=== PATIENT | female | born 1980 | race Hispanic/Latino ===

== ENCOUNTER 2018-12-28 22:09 | Emergency (ER) | payer OTHER, SELFPAY ==
--- NOTE | 2018-12-28 22:38 | RAD ---
Exam: Chest one view HISTORY:Pain Comparison: None FINDINGS: Lungs: No consolidation Cardiac silhouette:Accentuated by portable technique. Pulmonary vessels: Normal Pleural Spaces: Clear Pneumothorax: None Osseous abnormalities: None of acuity. IMPRESSION: No focal consolidation.
[2018-12-28 22:39] LABS: #Basophils 0.1 thou/uL (0.0-0.2); #Eosinphils 0.2 thou/uL (0.0-0.7); #Lymphocytes 4.1 thou/uL (1.20-3.40); #Monocytes 0.7 thou/uL (0.11-0.59); %Basophils 0.9 % (0.0-1.0); %Eosinophils 2.1 % (0.0-10.0); %Lymphocytes 40.6 % (21.0-51.0); %Monocytes 7.1 % (0.0-10.0); %Neutrophils 49.3 % (42.0-75.0); Hemoglobin 12.9 g/dL (12.0-16.0); Mean Corpuscular HGB CONC 34.4 g/dL (32.0-36.0); Mean Corpuscular Hemoglobin 32.5 pg (27.0-31.0); Mean Corpuscular Volume 94.5 fL (78.0-98.0); Mean Platelet Volume 8.2 fL (7.4-10.4); Platelet Count 257 thou/uL (130-400); RBC Distribution Width 12.2 % (11.5-14.5); Red Blood Cell (RBC) Count 3.96 mill/uL (4.20-5.40); White Blood Cell (WBC) Count 10.1 thou/uL (4.8-10.8)
[2018-12-28 22:45] LABS: BHCG - Serum Negative (NEGATIVE); Pregs Control Background? CLEAR/WHITE (CLR/WHITE); Pregs Control Bar Appear? YES (CONTROL BAR)
[2018-12-28 23:01] LABS: ALT (SGPT) 76 U/L (8-55); AST (SGOT) 126 U/L (5-34); Albumin 4.1 g/dL (3.5-5.0); Alkaline Phosphatase 136 U/L (40-110); Anion Gap 12 mmol/L (10-20); BUN (Urea Nitrogen) 9 mg/dL (7.0-18.7); Bilirubin, Total 0.3 mg/dL (0.2-1.2); CK (CPK) 78 U/L (29-168); Calc. Creatinine Clearance 0 mL/min (70-130); Calcium 9.1 mg/dL (7.8-10.44); Carbon Dioxide 23 mmol/L (22-29); Chloride 106 mmol/L (98-107); Estimated GFR-MDRD Greater than 90; Globulin 3.3 g/dL (2.4-3.5); Glucose 100 mg/dL (70-105); Lipase 40 U/L (8-78); Potassium 3.7 mmol/L (3.5-5.1); Protein, Total 7.4 g/dL (6.0-8.3); Sodium 137 mmol/L (136-145)
[2018-12-28] MEDS ORDERED: Morphine 4 MG/ML VIAL ONE (23:45)
[2018-12-28] MEDS ORDERED: Ondansetron PF 4 MG/2 ML Vial ONE (23:45)
[2018-12-29 00:38] LABS: Bacteria/HPF None Seen HPF (None Seen); Bilirubin Negative (Negative); Blood, Urine Negative (Negative); Clarity Clear (Clear); Glucose, Urine (Dipstick) Normal (Negative); Leukocyte 25 Leu/uL (Negative); Nitrite Negative (Negative); Protein, Urine (Dipstick) Negative (Neg-Trace); RBC/HPF 0-3 HPF (0-3); Urobilinogen Normal mg/dL (Less than 2); WBC/HPF 0-3 HPF (0-3)
--- NOTE | 2018-12-29 08:18 | ULT ---
PRELIMINARY REPORT/[facility]/EMERGENCY AFTER HOURS PROCEDURE: PROCEDURE INFORMATION: Exam: US Abdomen Limited, Right Upper Quadrant Exam date and time: 12/29/2018 1:46 AM Clinical history: 38 years old, female; Abdominal pain; Patient HX: Epigastric pain x yrs (on/off) TECHNIQUE: Imaging protocol: Real-time ultrasound of the abdomen with image documentation. Examination was focus ed on the right upper quadrant. COMPARISON: CT Abdomen Pelvis W Con 12/29/2018 12:14 AM FINDINGS: Liver: Increased echogenicity of the liver. The liver length is 18.8 cm in midclavicular line. Gallbladder: The gallbladder is filled with tiny stones/sludge. Wall thickness to 4 mm. The sonograph ic Kent's sign was reported as positive. Questionable pericholecystic fluid. Common bile duct: The common bile duct measures 0.54 cm. Pancreas: The pancreas is obscured by bowel gas. Right kidney: Normal appearance of the right kidney with normal cortical echogenicity and without hyd ronephrosis or mass. The right kidney measures 13.1 x 5.4 x 4.6 cm. Portal venous: The portal vein is patent with normal hepatopedal flow. IMPRESSION: 1. The gallbladder is filled with tiny stones/sludge. Gallbladder wall thickness at 4 mm and positive sonographic Kent sign. Findings could represent early acute or chronic cholecystitis. 2. The common bile duct was measured at 0.54 mm. 3. Hepatomegaly and hepatic steatosis. Thank you for allowing us to participate in the care of your patient. Dictated and Authenticated by: Brenda Wolf MD 12/29/2018 2:25 AM Central Time ([place] & [place]) FINAL REPORT GALLBLADDER ULTRASOUND: Date: 12/29/18 There is dense shadowing from the gallbladder fossa which would be consistent with a contracted gallb ladder filled with stones. I am in agreement with the preliminary report issued by [facility].
--- NOTE | 2018-12-29 08:20 | CT ---
PRELIMINARY REPORT/[facility]/EMERGENCY AFTER HOURS PROCEDURE: PROCEDURE INFORMATION: Exam: CT Abdomen And Pelvis With Contrast Exam date and time: 12/29/2018 12:14 AM Clinical history: 38 years old, female; Patient HX: 38f presents to the ED with C/O epigastric abdomi nal pain intermittently for the last ten years. PT reports worsening pain today. PT reports worse wit h movement. Denies trauma or injury. PT reports being evaluated for this 9 or 10 years ago and states they did an US and an mri but they found nothing. PT has not followed up with pmd about th is pain. Denies chest pain, SOB, and vomiting. Reports nausea with movement. TECHNIQUE: Imaging protocol: Computed tomography of the abdomen and pelvis with intravenous contrast. COMPARISON: No relevant prior studies available. FINDINGS: Lungs: No consolidations in the lung bases. Liver: No liver masses. Gallbladder and bile ducts: Possible tiny stones or sludge in the gallbladder. No pericholecystic inf lammation. Mild prominence of the common bile duct with smooth tapered to the ampulla. Pancreas: No pancreatic mass or ductal dilation. Spleen: No mass. Adrenals: No adrenal nodules. Kidneys and ureters: No enhancing mass or hydronephrosis. Stomach and bowel: No evidence of obstruction or bowel wall thickening. Appendix: Normal appendix. Intraperitoneal space: No free air or free fluid. Vasculature: No abdominal aortic aneurysm. Lymph nodes: No lymphadenopathy. Bladder: Normal bladder. Reproductive: Normal appearance of the uterus and adnexa. Bones/joints: No suspicious bone lesions. Soft tissues: No acute findings. IMPRESSION: Possible small gallstones/sludge and mild prominence of the common bile duct. This could be better ev aluated with ultrasound if clinically indicated. Thank you for allowing us to participate in the care of your patient. Dictated and Authenticated by: Brenda Wolf MD 12/29/2018 1:07 AM Central Time ([place] & [place]) FINAL REPORT CT ABDOMEN AND PELVIS WITH CONTRAST: Liver, spleen, pancreas, kidneys, and bowel loops all appear unremarkable. Pelvic structures unremar kable. No evidence of acute process. I am in agreement with the preliminary report.
== END 2018-12-29 02:57 | disposition home or self-care (01) ==
LOC: ERS 22:09
DX: K80.20 Calculus of gallbladder without cholecystitis without obstruction (principal); I10 Essential (primary) hypertension; Z79.899 Other long term (current) drug therapy
CPT/HCPCS: 36415; 71045; 74177; 76705; 80053; 81003; 81015; 82550; 83690; 84484; 84703; 85025; 93005; 96361; 96374; 96375; J2270; J2405

== ENCOUNTER 2022-04-27 16:27 | Inpatient (IN) | payer SELFPAY ==
[2022-04-27 17:07] LABS: #Eosinphils 0.2 thou/uL (0.0-0.7); #Lymphocytes 1.8 thou/uL (1.20-3.40); #Monocytes 0.5 thou/uL (0.11-0.59); #Neutrophils 3.6 thou/uL (1.40-6.50); %Basophils 0.3 % (0.0-1.0); %Eosinophils 3.3 % (0.0-10.0); %Lymphocytes 29.7 % (21.0-51.0); %Monocytes 8.5 % (0.0-10.0); %Neutrophils 58.2 % (42.0-75.0); Hemoglobin 13.3 g/dL (12.0-16.0); Mean Corpuscular HGB CONC 33.7 g/dL (32.0-36.0); Mean Corpuscular Hemoglobin 33.1 pg (27.0-31.0); Mean Corpuscular Volume 98.3 fl (78.0-98.0); Mean Platelet Volume 7.9 fL (7.4-10.4); Platelet Count 247 10x3/uL (130-400); RBC Distribution Width 12.1 % (11.5-14.5); Red Blood Cell (RBC) Count 4.03 mill/uL (4.20-5.40); White Blood Cell (WBC) Count 6.2 10x3/uL (4.8-10.8)
[2022-04-27 17:26] LABS: ALT (SGPT) 49 U/L (8-55); AST (SGOT) 126 U/L (5-34); Albumin 4.2 g/dL (3.5-5.0); Alkaline Phosphatase 134 U/L (40-110); Anion Gap 12 mmol/L (10-20); BUN (Urea Nitrogen) 7 mg/dL (7.0-18.7); Bilirubin, Total 0.5 mg/dL (0.2-1.2); Calc. Creatinine Clearance 0 mL/min (70-130); Carbon Dioxide 24 mmol/L (22-29); Chloride 104 mmol/L (98-107); Estimated GFR 112; Globulin 2.9 g/dL (2.4-3.5); Glucose 184 mg/dL (70-105); Lipase 28 U/L (8-78); Potassium 3.7 mmol/L (3.5-5.1); Protein, Total 7.1 g/dL (6.0-8.3); Sodium 136 mmol/L (136-145)
[2022-04-27 17:31] LABS: Bacteria/HPF 4+ HPF (None Seen); Bilirubin Negative (Negative); Blood, Urine Negative (Negative); Clarity Cloudy (Clear); Glucose, Urine (Dipstick) Normal (Negative); Ketone, Urine Negative (Negative); Leukocyte 250 Leu/uL (Negative); Nitrite Negative (Negative); Protein, Urine (Dipstick) Negative (Neg-Trace); RBC/HPF 0-3 HPF (0-3)
[2022-04-27 17:31] LABS: Pregnancy Test - Urine (BHCG) Negative (Negative); Pregu Control Background? CLEAR/WHITE (CLR/WHITE); Pregu Control Bar Appear? YES (CONTROL BAR)
[2022-04-27] MEDS ORDERED: Ketorolac Tromethamine 30 MG/ML VIAL ONE ×2 (17:40→19:24)
[2022-04-27] MEDS ORDERED: Famotidine/PF 20 mg/2ml Vial ONE (17:40)
[2022-04-27] MEDS ORDERED: Ondansetron PF 4 MG/2 ML Vial ONE ×2 (17:40→19:24)
[2022-04-27] MEDS ORDERED: Iopamidol 30 ML ONE (18:48)
[2022-04-27] MEDS ORDERED: Bupivacaine/Epinephrine 0.25% 30 ML VIAL ONE (18:48)
[2022-04-27] MEDS ORDERED: Fentanyl 250 MCG/5 ML VIAL ONE (18:49)
[2022-04-27] MEDS ORDERED: SUGAMMADEX SODIUM 200 MG/2 ML VIAL ONE (18:49)
[2022-04-27] MEDS ORDERED: Metoclopramide HCl 10 MG/2 ML VIAL ONE (19:24)
[2022-04-27] MEDS ORDERED: Dexamethasone 20 MG/5 ML VIAL ONE (19:24)
[2022-04-27] MEDS ORDERED: Rocuronium Bromide 10 MG/ML (10ML VIAL) ONE (19:24)
[2022-04-27] MEDS ORDERED: Lidocaine 1% PF 5 ML VIAL ONE (19:24)
[2022-04-27] MEDS ORDERED: diphenhydrAMINE 50 MG/ML VIAL ONE (19:24)
[2022-04-27] MEDS ORDERED: PROPOFOL 200 MG/20 ML VIAL ONE (19:24)
[2022-04-27] MEDS ORDERED: Glycopyrrolate 0.2 MG/ML 5 ML SYRINGE ONE (19:24)
[2022-04-27] MEDS ORDERED: NEOSTIGMINE 3 MG/3 ML SYR 3 MG/3 ML SYRINGE ONE (19:24)
[2022-04-27 19:34] LABS: PTT 30.9 sec (22.9-36.1); Prothrombin Time 13.4 sec (12.0-14.7)
[2022-04-27 20:30] LABS: SARS-CoV-2 NAA Rapid Test Not Detected (NotDetected)
[2022-04-27] MEDS ORDERED: Mag-Al 1200 mg/1200 mg/30 ML UDCUP PO PRN (21:50)
[2022-04-27] MEDS ORDERED: Dextrose 50% Abboject 50 ML SYRINGE SLOW IVP PRN (21:50)
[2022-04-27] MEDS ORDERED: Calcium Carbonate 500 MG ChewTAB PO PRN (21:50)
[2022-04-27] MEDS ORDERED: Promethazine HCl 25 MG/ML VIAL IM PRN (21:50)
[2022-04-27] MEDS ORDERED: Ipratropium/Albuterol 3 ML NEB NEB PRN (21:50)
[2022-04-27] MEDS ORDERED: hydrALAZINE 20 MG/ML VIAL SLOW IVP PRN (21:50)
[2022-04-27] MEDS ORDERED: Ondansetron PF 4 MG/2 ML Vial IVP PRN (21:50)
[2022-04-27] MEDS ORDERED: Dextrose 5% in Water 1,000 ML IV PRN (21:50)
[2022-04-27] MEDS ORDERED: traMADol HCl 50 MG TAB PO PRN (21:54)
[2022-04-27] MEDS ORDERED: Fentanyl 100 MCG/2 ML VIAL ONE (21:55)
[2022-04-27] MEDS ORDERED: Piperacillin/Tazobactam 3.375 GM in Sodium Chloride 0.9% 100 ML IVPB SCH ×2 (22:00→22:15)
[2022-04-27] MEDS: Lactated Ringer's 1,000 ML IV SCH (23:39)
[2022-04-27] MEDS: Ketorolac Tromethamine 30 MG/ML VIAL IVP SCH (23:39)
[2022-04-27] MEDS: traMADol HCl 50 MG TAB PO SCH (23:40)
[2022-04-27 23:47] VITALS: BMI 39.3
[2022-04-28] MEDS: Piperacillin/Tazobactam 3.375 GM in Sodium Chloride 0.9% 100 ML IVPB SCH ×3 (04:41→20:25)
[2022-04-28] MEDS: Ketorolac Tromethamine 30 MG/ML VIAL IVP SCH ×4 (05:20→23:31)
[2022-04-28] MEDS: traMADol HCl 50 MG TAB PO SCH ×2 (05:20→12:56)
[2022-04-28 05:38] LABS: #Lymphocytes 0.8 thou/uL (1.20-3.40); #Monocytes 0.1 thou/uL (0.11-0.59); #Neutrophils 5.8 thou/uL (1.40-6.50); %Basophils 0.2 % (0.0-1.0); %Eosinophils 0.1 % (0.0-10.0); %Lymphocytes 12.3 % (21.0-51.0); %Monocytes 1.5 % (0.0-10.0); %Neutrophils 85.9 % (42.0-75.0); Hemoglobin 12.9 g/dL (12.0-16.0); Mean Corpuscular HGB CONC 32.6 g/dL (32.0-36.0); Mean Corpuscular Hemoglobin 32.2 pg (27.0-31.0); Mean Corpuscular Volume 98.8 fl (78.0-98.0); Platelet Count 265 10x3/uL (130-400); RBC Distribution Width 12.2 % (11.5-14.5); Red Blood Cell (RBC) Count 4.01 mill/uL (4.20-5.40); White Blood Cell (WBC) Count 6.7 10x3/uL (4.8-10.8)
[2022-04-28 05:57] LABS: ALT (SGPT) 366 U/L (8-55); AST (SGOT) 499 U/L (5-34); Albumin 3.9 g/dL (3.5-5.0); Alkaline Phosphatase 135 U/L (40-110); Anion Gap 12 mmol/L (10-20); BUN (Urea Nitrogen) 6 mg/dL (7.0-18.7); Bilirubin, Total 0.5 mg/dL (0.2-1.2); Calc. Creatinine Clearance 164 mL/min (70-130); Calcium 8.8 mg/dL (7.8-10.44); Carbon Dioxide 22 mmol/L (22-29); Chloride 107 mmol/L (98-107); Estimated GFR 114; Globulin 2.8 g/dL (2.4-3.5); Glucose 171 mg/dL (70-105); Lipase 13 U/L (8-78); Potassium 4.2 mmol/L (3.5-5.1); Protein, Total 6.7 g/dL (6.0-8.3); Sodium 137 mmol/L (136-145)
[2022-04-28] MEDS ORDERED: Famotidine/PF 20 mg/2ml Vial SLOW IVP SCH (09:00)
[2022-04-28] MEDS: Famotidine 20 MG TAB PO SCH ×2 (09:03→20:26)
[2022-04-28] MEDS: Lactated Ringer's 1,000 ML IV SCH ×2 (09:07→17:08)
[2022-04-28] MEDS ORDERED: Iopamidol 15 ML ONE (10:24)
[2022-04-28] MEDS ORDERED: Indomethacin 50 MG SUPP ONE (10:25)
[2022-04-28] MEDS ORDERED: Fentanyl 100 MCG/2 ML VIAL ONE (10:26)
[2022-04-28] MEDS ORDERED: PROPOFOL 200 MG/20 ML VIAL ONE (10:39)
[2022-04-28] MEDS ORDERED: Succinylcholine Chloride 100 MG/5 ML SYRINGE FS ONE (10:39)
[2022-04-28] MEDS ORDERED: Dexamethasone 20 MG/5 ML VIAL ONE (10:39)
[2022-04-28] MEDS ORDERED: Ondansetron PF 4 MG/2 ML Vial ONE (10:39)
[2022-04-28] MEDS ORDERED: Promethazine HCl 25 MG/ML VIAL IM PRN (11:28)
[2022-04-28] MEDS ORDERED: Ondansetron HCl/PF 4 MG/2 ML Vial IVP PRN (11:28)
[2022-04-28] MEDS ORDERED: traMADol HCl 50 MG TAB PO PRN (13:14)
[2022-04-28] MEDS: traMADol HCl 50 MG TAB PO PRN (20:24)
[2022-04-28] MEDS: Senokot S 8.6-50 MG TAB PO SCH (20:26)
[2022-04-29] MEDS: Piperacillin/Tazobactam 3.375 GM in Sodium Chloride 0.9% 100 ML IVPB SCH (04:13)
[2022-04-29] MEDS: Lactated Ringer's 1,000 ML IV SCH (04:20)
[2022-04-29] MEDS: Ketorolac Tromethamine 30 MG/ML VIAL IVP SCH ×2 (05:20→11:03)
[2022-04-29 05:24] LABS: #Monocytes 0.6 thou/uL (0.11-0.59); %Basophils 0.1 % (0.0-1.0); %Eosinophils 0.1 % (0.0-10.0); %Lymphocytes 21.3 % (21.0-51.0); %Monocytes 5.7 % (0.0-10.0); %Neutrophils 72.8 % (42.0-75.0); Hemoglobin 11.2 g/dL (12.0-16.0); Mean Corpuscular HGB CONC 32.9 g/dL (32.0-36.0); Mean Corpuscular Hemoglobin 32.4 pg (27.0-31.0); Mean Corpuscular Volume 98.3 fl (78.0-98.0); Mean Platelet Volume 8.2 fL (7.4-10.4); Platelet Count 233 10x3/uL (130-400); RBC Distribution Width 12.3 % (11.5-14.5); Red Blood Cell (RBC) Count 3.47 mill/uL (4.20-5.40); White Blood Cell (WBC) Count 9.6 10x3/uL (4.8-10.8)
[2022-04-29 05:43] LABS: Phosphorus 3.6 mg/dL (2.3-4.7)
[2022-04-29 05:46] LABS: ALT (SGPT) 202 U/L (8-55); AST (SGOT) 123 U/L (5-34); Albumin 3.3 g/dL (3.5-5.0); Alkaline Phosphatase 94 U/L (40-110); Bilirubin, Direct 0.2 mg/dL (0.1-0.3); Bilirubin, Total 0.4 mg/dL (0.2-1.2); Lipase 21 U/L (8-78); Magnesium 1.9 mg/dL (1.6-2.6); Protein, Total 5.7 g/dL (6.0-8.3)
[2022-04-29 08:33] LABS: Anion Gap 9 mmol/L (10-20); BUN (Urea Nitrogen) 10 mg/dL (7.0-18.7); Calc. Creatinine Clearance 154 mL/min (70-130); Calcium 8.3 mg/dL (7.8-10.44); Carbon Dioxide 25 mmol/L (22-29); Chloride 105 mmol/L (98-107); Estimated GFR 113; Glucose 116 mg/dL (70-105); Potassium 3.6 mmol/L (3.5-5.1); Sodium 135 mmol/L (136-145)
[2022-04-29] MEDS ORDERED: Polyethylene Glycol 3350 17 GM Packet PO SCH (09:00)
[2022-04-29] MEDS: Famotidine 20 MG TAB PO SCH (09:14)
[2022-04-29] MEDS: Senokot S 8.6-50 MG TAB PO SCH (09:14)
[2022-04-29] MEDS: traMADol HCl 50 MG TAB PO PRN (11:03)
[2022-04-29 12:20] VITALS: BP 121/79; TEMP 97.9
== END 2022-04-29 11:20 | disposition home or self-care (01) | DRG 419 ==
LOC: ERS 16:27 → SDC/OP 19:42 → SURG A 22:44 → OBSVTOIN 04-28 13:15
PROVIDERS: ADMIT Surgery; ATTEND Surgery
PROC: 0FT44ZZ Resection of Gallbladder, Percutaneous Endoscopic Approach (ICD-10-PCS; principal; 2022-04-27)
PROC: BF031ZZ Plain Radiography of Gallbladder and Bile Ducts using Low Osmolar Contrast (ICD-10-PCS; 2022-04-27)
PROC: 0FC98ZZ Extirpation of Matter from Common Bile Duct, Via Natural or Artificial Opening Endoscopic (ICD-10-PCS; 2022-04-28)
DX: K80.62 Calculus of gallbladder and bile duct with acute cholecystitis without obstruction (principal); Z20.822 Contact with and (suspected) exposure to COVID-19; Z88.8 Allergy status to other drugs, medicaments and biological substances; Z98.51 Tubal ligation status; K76.0 Fatty (change of) liver, not elsewhere classified; I10 Essential (primary) hypertension; E66.3 Overweight; Z68.39 Body mass index [BMI] 39.0-39.9, adult
CPT/HCPCS: 36415; 47532; 71045; 74330; 76705; 80048; 80053; 80076; 81003; 81015; 81025; 83690; 83735; 84100; 84484; 85025; 85610; 85730; 86850; 86900; 86901; 88304; 93005; 96365; 96375; 96376; C1889; G0378; J1100; J1200; J1885; J2405; J2543; J2704; J2765; J3010; J3490; J7120; Q9967; S0028; U0002

== ENCOUNTER 2022-11-04 11:06 | Emergency (ER) | payer SELFPAY | END 2022-11-04 12:55 | disposition home or self-care (01) | LOC: ERS 11:06 | DX: S00.03XA Contusion of scalp, initial encounter (principal); S00.83XA Contusion of other part of head, initial encounter; I10 Essential (primary) hypertension; Y04.8XXA Assault by other bodily force, initial encounter | CPT/HCPCS: 70450; 71045; 72072; 72125 ==